=== PATIENT | female | born 2000 | race Caucasian/White ===

== ENCOUNTER 2020-01-20 16:55 | Emergency (ER) | payer OTHER ==
[2020-01-20 17:10] VITALS: BP 125/76; PULSE 93; RESP 20; TEMP 98
--- NOTE | 2020-01-20 17:29 | ED ---
General Adult HPI - General Chief complaint: Skin/Abscess/Foreign Body Stated complaint: lump on breast Time Seen by Provider: 01/20/20 17:11 Source: patient, RN notes reviewed, old records reviewed Mode of arrival: ambulatory Limitations: no limitations - History of Present Illness Initial comments: Patient is a healthy 20-year-old female who presents emergency department today with a lump to her left breast for the past year and she reports that she's returning to feel more discomfort and slightly enlarged over the past few days. Patient reports it is mobile. Patient states that she does have this evaluated by her primary care doctor to have that followed up with this. Patient states that she is not on any hormonal control. Her last menstrual period finished 2 days ago. He does report that she has a family history of breast cancer. - Related Data Previous Rx's Medication Instructions Recorded Ibuprofen 400 mg PO Q8H #30 tab 01/20/20 Allergies Allergy/AdvReac Type Severity Reaction Status Date / Time No Known Allergies Allergy Verified 01/20/20 17:10 Review of Systems ROS Statement: Those systems with pertinent positive or pertinent negative responses have been documented in the HPI. ROS Other: All systems not noted in ROS Statement are negative. Past Medical History Past Medical History: No Reported History History of Any Multi-Drug Resistant Organisms: None Reported Past Surgical History: No Surgical Hx Reported Past Psychological History: No Psychological Hx Reported Smoking Status: Current every day smoker Past Alcohol Use History: Occasional Past Drug Use History: Marijuana, Prescription Drug Abuse General Exam - General Exam Comments Initial Comments: 20-year-old female. Alert and oriented. No distress. Limitations: no limitations General appearance: alert, in no apparent distress Head exam: Present: atraumatic, normocephalic, normal inspection Eye exam: Present: normal appearance, PERRL, EOMI. Absent: scleral icterus, conjunctival injection, periorbital swelling ENT exam: Present: normal exam, mucous membranes moist Neck exam: Present: normal inspection. Absent: tenderness, meningismus, lymphadenopathy Respiratory exam: Present: normal lung sounds bilaterally Cardiovascular Exam: Present: regular rate, normal rhythm, normal heart sounds, other (Patient has multiple 2 cm circular-like mass over the 3 o'clock position of patient's right breast. Patient has no overlying skin changes. The area is soft, no specific tenderness.). Absent: systolic murmur, diastolic murmur, rubs, gallop, clicks GI/Abdominal exam: Present: soft, normal bowel sounds. Absent: distended, tenderness, guarding, rebound, rigid Extremities exam: Present: normal inspection, full ROM, normal capillary refill. Absent: tenderness, pedal edema, joint swelling, calf tenderness Back exam: Present: normal inspection Neurological exam: Present: alert, oriented X3, CN II-XII intact Psychiatric exam: Present: normal affect, normal mood Skin exam: Present: warm, dry, intact, normal color. Absent: rash Course Vital Signs 01/20/20 17:04 Temperature 98.0 F Pulse Rate 93 Respiratory 20 Rate Blood Pressure 125/76 O2 Sat by Pulse 100 Oximetry Medical Decision Making - Medical Decision Making 20-year-old female presents with 1 year of multiple breast mass. She reports that it wasn't slightly more painful past 2 days. She lessens finish her menstrual period 2 days ago. Patient reports that the areas mobile. Eye exam shows a 2 cm mass of the 3 o'clock position of the left breast or chills as another similar-like mobile mass on the right breast at the 9 o'clock position. Patient at this time has no overlying skin changes. I discussed most likely concern is for fibrous adenoma or fibrocystic changes. Discussed that they should increase decreased in size based out of her fluctuation of her hormones. I discussed the Patient can take anti-inflammatory medication for pain. Discussion is follow-up with a general surgeon. Discussed return parameters and follow-up. Disposition Clinical Impression: Breast mass in female Disposition: HOME SELF-CARE Condition: Good Instructions (If sedation given, give patient instructions): Fibrocystic Breast Changes (ED) Additional Instructions: Please use medication as discussed. Please follow up with family doctor if sympt oms have not improved over the next two days. Please return to the emergency room if your symptoms increase or worsen or for any other concerns. Prescriptions: Ibuprofen 400 mg PO Q8H #30 tab Is patient prescribed a controlled substance at d/c from ED?: No When asked, does pt state using other controlled substances?: No Referrals: Dave Watts MD [Primary Care Provider] - 1-2 days Tessa Barajas MD [STAFF PHYSICIAN] - 1-2 days Time of Disposition: 17:27
--- NOTE | 2020-01-21 06:42 | CDI ---
Dear Abbey Carter PA-C, PAC Please clarify the breast mass site in physical exam mentioned as right & in mdm mentioned as left breast. Thank you, Pastor Christensen Retail Sales Director If you have any questions, please contact Customer Contact Specialist at [phone] [facility]
== END 2020-01-20 17:32 | disposition home or self-care (01) ==
LOC: EC 16:55
DX: N63.21 Unspecified lump in the left breast, upper outer quadrant (principal); N63.11 Unspecified lump in the right breast, upper outer quadrant; N63.14 Unspecified lump in the right breast, lower inner quadrant; F17.200 Nicotine dependence, unspecified, uncomplicated; Z80.3 Family history of malignant neoplasm of breast
CPT/HCPCS: 99283

== ENCOUNTER → 2020-09-03 | Outpatient (CLI) | payer OTHER ==
[2020-09-03 15:24] VITALS: BP 99/64; PULSE 86; RESP 12; TEMP 98.1
--- NOTE | 2020-09-03 15:45 | P.GSHP ---
History of Present Illness H&P Date: 09/03/20 Chief Complaint: lump left breast Lashonda is a 20 year old white female who is seen for DR. Watts regarding a lump in her left breast. It has been present for about 3 years. It is increasing in size. It is in the left lateral area of the breast. It increases in size near her periods. It does not drain. It results in pain when it increases in size. The pain is sharp when it occurs. It does not spread any place. She was seen in the emergency room in December 2019 secondary to pain related to this. At that time it was felt that this was possibly a fibroadenoma fibrocystic disease and she was told that anti-inflammatories may benefit for the discomfort and they talked about following up with surgery. Radiographic study she's had done was on [id number] which was an ultrasound of the left breast. This did not reveal any suspicious finding to correspond with the palpable abnormality. Caffeine: 1-2 coffee/day Nicotine: Negative, she does have exposure to secondhand smoke, she does smoke marijuana uses it in the evening to help her sleep Theophylline:occasionally Family History: maternal great aunt: breast and brain cancer Hormonal History: menarche: 15 G0 periods regular BCP: none, no hormones Surgical History: none Medical History: none Social History: smoke: none alcohol: occasional, 1 time a month drugs: Marijuana in the evenings to sleep - Constitutional Constitutional: Denies chills, Denies fever - EENT Eyes: denies blurred vision, denies pain Ears: deny: decreased hearing, tinnitus Ears, nose, mouth and throat: Reports headache, Denies sore throat - Breasts Breasts: bilateral: as per HPI - Cardiovascular Comment: EKG done 1 year ago by primary care Cardiovascular: Reports chest pain, Denies shortness of breath - Respiratory Respiratory: Denies cough, Denies 7 - Gastrointestinal Gastrointestinal: Denies abdominal pain, Denies diarrhea, Denies nausea, Denies vomiting - Genitourinary (Female) Genitourinary: Denies dysuria, Denies hematuria - Menstruation Menstruation: Reports period normal - Musculoskeletal Musculoskeletal: Denies myalgias - Integumentary Comment: Eczema Integumentary: Denies pruritus, Denies rash - Neurological Neurological: Denies numbness, Denies weakness - Psychiatric Psychiatric: Reports anxiety, Reports depression - Endocrine Endocrine: Denies fatigue, Denies weight change - Hematologic/Lymphatic Comment: none - Allergic/Immunologic Allergic/Immunologic: Reports as per HPI Past Medical History Past Medical History: No Reported History History of Any Multi-Drug Resistant Organisms: None Reported Past Surgical History: No Surgical Hx Reported Past Psychological History: No Psychological Hx Reported Past Alcohol Use History: Occasional Past Drug Use History: Marijuana, Prescription Drug Abuse Medications and Allergies Home Medications Medication Instructions Recorded Confirmed Type Minocycline HCl [Minocin] 100 mg PO DAILY 09/03/20 09/03/20 History Allergies Allergy/AdvReac Type Severity Reaction Status Date / Time No Known Allergies Allergy Verified 09/03/20 15:10 Surgical - Exam BMI 20.4 - General well developed - Eyes normal ocular movement - ENT no hearing loss, no congestion - Neck no masses, trachea midline - Respiratory normal respiratory effort, clear to auscultation - Cardiovascular Rhythm: regular Heart Sounds: normal: S1, S2 - Abdomen Abdomen: soft, non tender, no guarding, no rigid, no rebound - Integumentary normal turgor - Neurologic no disoriented, no combative - Musculoskeletal normal gait, normal posture - Psychiatric oriented to time, oriented to person, oriented to place, speech is normal, memory intact breast exam: BRA: 32A inspection: Ptosis grade 1 bilateral Palpation: Right breast: Multiple positional exam fibrocystic changes no dominant masses or nodules of concern Right axilla: No adenopathy of concern Left breast: Multiple positional exam fibrocystic changes, increased density upper outer quadrant region believed to be fibrocystic change no discrete dominant mass or nodule of concern Left axilla: No adenopathy of concern Assessment and Plan Assessment: Impression: 1. Fibrocystic breast changes 2. Mild asymmetry of the breast with increased tissue in the upper quadrant of the left breast 3. No recent radiographic evaluation 4. Anxiety/depression Plan: 1. Left breast ultrasound 2. If left breast ultrasound is negative. This is fibrocystic change and was I'll patient conservatively 3. Decrease caffeine intake decrease exposure to secondhand smoke CC: DR. Watts encounter 25 minujtes, > 50% of time in planning and counselling
== END | disposition home or self-care (01) ==
LOC: WWCWWP 15:09
PROVIDERS: ATTEND Surgery
DX: Z53.9 Procedure and treatment not carried out, unspecified reason (principal)

== ENCOUNTER → 2020-09-24 | Outpatient (CLI) | payer OTHER ==
--- NOTE | 2020-09-27 08:43 | USB ---
Reason for exam: clinical finding. Physical Findings: Nurse did not find any significant physical abnormalities on exam. US Breast LT Left complete breast ultrasound includes all four quadrants, the retroareolar region and axilla. Finding demonstrates no cystic or solid lesion seen. Painful, dense tissue. These results were verbally communicated with the patient and result sheet given to the patient on 09/24/20. ASSESSMENT: Negative, BI-RAD 1 RECOMMENDATION: Clinical management of the left breast. Manage on a clinical basis with regard to pain.
== END | disposition home or self-care (01) ==
LOC: RADUSWWP 14:58
PROVIDERS: ATTEND Surgery
DX: N64.4 Mastodynia (principal)

== ENCOUNTER → 2020-10-01 | Outpatient (CLI) | payer OTHER ==
[2020-10-01 16:12] VITALS: BP 106/63; PULSE 82; RESP 16; TEMP 97.5
--- NOTE | 2020-10-01 16:12 | P.PN ---
Progress Note - Text Progress Note Date: 10/01/20 Lashonda is a 20 [place] [address]. This was regarding nodularity in her left breast as well as tenderness. The examination at that time did not reveal any discrete dominant masses or nodules of concern only fibrocystic changes were identified. [place] [address] which was negative for any cystic or solid lesions. Flow dense tissue was identified. Impression: 1. Fibrocystic breast changes Plan: 1. Avoid caffeine 2. Avoid nicotine exposure 3. Patient is reassured that the findings do not represent malignancy 4. Follow up in 1 year Cc: Dr. Watts
== END | disposition home or self-care (01) ==
LOC: WWCWWP 15:50
PROVIDERS: ATTEND Surgery
DX: Z53.9 Procedure and treatment not carried out, unspecified reason (principal)